=== PATIENT | female | born 1990 | race Caucasian/White ===

== ENCOUNTER 2016-04-17 16:55 | Outpatient (CLI) | payer SELFPAY ==
--- NOTE | 2016-04-17 18:00 | L&D Flow Sheet ---
LD Flowsheet Datetime Report Generated by CPN: 04/17/2016 18:00 Datetime: 04/17/2016 17:48 Vital Signs NBP Sys/Kalee/Mean (mmHg): 107 (QS system process) : 56 (QS system process) : 76 (QS system process) Pulse: 91 (QS system process) Datetime: 04/17/2016 17:45 Communication Communication Comments: Dr. Tucker notified of patient with complaints of vaginal bleeding, cervical exam reported, no vaginal bleeding upon exam. Order received to obtain reactive NST, discharge patient home. (Senia Isaac, RN) Datetime: 04/17/2016 17:42 Vaginal Exam Dilatation (cm): 0.0 (Senia Isaac, RN) Effacement (%): 0 (Senia Isaac, RN) Station: -2 (Senia Gray, RN) Exam by: Leyda Gray RN (Senia Gray, RN) Vaginal Bleeding: None (Senia Gray, RN) Cervix, Consistency: Firm (Senia Gray, RN) Cervix, Position: Posterior (Senia Gray, RN) Datetime: 04/17/2016 17:34 Uterine Activity Resting Tone (Palpate): Relaxed (Senia Gray, RN) Pain Pain Scale: 0 (Senia Gray, RN) Pain Presence: None/Denies (Senia Isaac, RN) Pain Type: N/A (Senia Isaac, RN) Pain Relief Measures: Comfort Measures (Senia Isaac, RN) Pain Assessment Comments: (Senia Gray, RN) Vaginal Bleeding: Small (Seniadanna Gray, RN) Maternal Assessment Level of Consciousness: Fully Conscious (Senia Isaac, RN) DTR's/Clonus: DTRs 2+; No Clonus (Senia Isaac, RN) Headache: Denies (Senia Isaac, RN) Breath Sounds, Left: Clear and Equal (Senia Isaac, RN) Breath Sounds, Right: Clear and Equal (Senia Isaac, RN) Nausea/Vomiting: Denies (Senia Isaac, RN) RUQ Epigastric Pain: Denies (Senia Isaac, RN) Datetime: 04/17/2016 17:33 Vital Signs NBP Sys/Kalee/Mean (mmHg): 111 (QS system process) : 65 (QS system process) : 82 (QS system process) Pulse: 81 (QS system process)
[2016-04-17 18:08] LABS: URINE BARBITURATES SCREEN NEGATIVE; URINE METHADONE SCREEN NEGATIVE; URINE PHENCYCLIDINE SCREEN NEGATIVE
--- NOTE | 2016-04-17 18:28 | Non Stress Test Report ---
Non Stress Test Datetime Report Generated by CPN: 04/17/2016 18:10 DEMOGRAPHIC EGA NST: 34.4 INDICATION Indication for Study: Ordered by Provider MONITORING Monitor Explained: Monitor Explained; Test Explained; Patient Verbalized Understanding Monitor Explained Other: see flowsheet for vital signs Time on Monitor: 04/17/2016 17:25 Time off Monitor: 04/17/2016 18:03 NST Duration: 38 NST INTERVENTIONS NST Interventions: None Physician Notified NST: Dr. Tucker BABY A: [id number] BABY A Movement : Present Contraction Frequency : none FHR Baseline : 140 Accelerations : 15X15 Decelerations : None Variability : Moderate 6-25bpm NST Review: Meets Criteria for Reactive NST NST Review and Verified By : Gunnar Galo RN NST Results: Reactive NST REPORT Report Trigger: Send Report
[2016-04-17 18:39] LABS: APPEARANCE,URINE SLIGHTLY-CLOUDY; BILIRUBIN,URINE NEGATIVE (NEGATIVE); GLUCOSE, URINE NEGATIVE (NEGATIVE); KETONES,URINE NEGATIVE (NEGATIVE); LEUKOCYTE ESTERASE,URINE NEGATIVE (NEGATIVE); NITRITE,URINE NEGATIVE (NEGATIVE); PROTEIN,URINE NEGATIVE (NEGATIVE); URINE SPECIFIC GRAVITY 1.005; UROBILINOGEN,URINE NEGATIVE mg/dL (<2.0)
== END 2016-04-17 18:14 | disposition home or self-care (01) ==
LOC: ER 16:55 → LC 18:14
PROVIDERS: ATTEND Obstetrics & Gynecology
PROC: 4A1HXCZ Monitoring of Products of Conception, Cardiac Rate, External Approach (ICD-10-PCS; principal; 2016-04-17)
DX: O46.93 Antepartum hemorrhage, unspecified, third trimester (principal); Z3A.34 34 weeks gestation of pregnancy
CPT/HCPCS: 59025; 80307; 81001

== ENCOUNTER 2016-05-20 20:27 | Outpatient (CLI) | payer OTHER ==
--- NOTE | 2016-05-20 22:00 | L&D Flow Sheet ---
LD Flowsheet Datetime Report Generated by CPN: 05/20/2016 22:00 Datetime: 05/20/2016 21:34 Vital Signs NBP Sys/Kalee/Mean (mmHg): 107 (QS system process) : 58 (QS system process) : 76 (QS system process) Pulse: 78 (QS system process) Datetime: 05/20/2016 21:05 Vital Signs NBP Sys/Kalee/Mean (mmHg): 103 (QS system process) : 57 (QS system process) : 72 (QS system process) Pulse: 79 (QS system process)
[2016-05-20 22:31] LABS: APPEARANCE,URINE CLEAR; BILIRUBIN,URINE NEGATIVE (NEGATIVE); GLUCOSE, URINE NEGATIVE (NEGATIVE); KETONES,URINE NEGATIVE (NEGATIVE); LEUKOCYTE ESTERASE,URINE NEGATIVE (NEGATIVE); NITRITE,URINE NEGATIVE (NEGATIVE); PROTEIN,URINE NEGATIVE (NEGATIVE); URINE SPECIFIC GRAVITY 1.003; UROBILINOGEN,URINE NEGATIVE mg/dL (<2.0)
[2016-05-20 22:38] LABS: URINE BARBITURATES SCREEN NEGATIVE; URINE METHADONE SCREEN NEGATIVE; URINE OPIATES LOW NEGATIVE; URINE PHENCYCLIDINE SCREEN NEGATIVE
[2016-05-20] MEDS ORDERED: DIPHENHYDRAMINE HCL 50 MG CAPSULE PO ONE (23:00)
[2016-05-20] MEDS ORDERED: DIPHENHYDRAMINE HCL 25 MG CAPSULE ONE (23:18)
[2016-05-21 00:42] LABS: APPEARANCE,URINE CLEAR; BILIRUBIN,URINE NEGATIVE (NEGATIVE); GLUCOSE, URINE NEGATIVE (NEGATIVE); KETONES,URINE NEGATIVE (NEGATIVE); LEUKOCYTE ESTERASE,URINE NEGATIVE (NEGATIVE); NITRITE,URINE NEGATIVE (NEGATIVE); PROTEIN,URINE NEGATIVE (NEGATIVE); URINE SPECIFIC GRAVITY 1.012; UROBILINOGEN,URINE NEGATIVE mg/dL (<2.0)
--- NOTE | 2016-05-21 04:46 | Antepartum Discharge Summary ---
Antepartum DC Datetime Report Generated by CPN: 05/21/2016 04:45 DIET/ACTIVITY/RESTRICTIONS Diet: Regular (05/20/2016 23:21:Essie Wright RN) Activity: Normal Activity (05/20/2016 23:21:Essie Wright, RN) TEACHING/INSTRUCTIONS/REFERRALS Instructions Given To: patient and and mother (05/20/2016 23:21:Essie Wright RN) Instructions Understood: Patient Verbalized Understanding; Support Person Verbalized Understanding (05/20/2016 23:21:Essie Wright RN) Referrals: None (05/20/2016 23:21:Essie Wright RN) Educational Materials- Other: kick counts, comfort measures, early labor signs reviewed. (05/20/2016 23:21:Essie Wright RN) DISCHARGE INFORMATION Discharged AMA: No (05/20/2016 23:21:Essie Wright RN) Discharge Date/Time: 05/20/2016 23:21 (05/20/2016 23:21:Essie Wright RN) Discharged To: Home (05/20/2016 23:21:Essie Wright RN) Discharge Provider Name: Dr. Otto (05/20/2016 23:21:Essie Wright RN) Accompanied By: and mother (05/20/2016 23:21:Essie Wright RN) Discharge Method: Ambulatory (05/20/2016 23:21:Essie Wright RN) Condition: Stable (05/20/2016 23:21:Essie Wright RN) FOLLOW UP INFORMATION Follow Up With: [facility] (05/20/2016 23:21:Essie Wright RN) Follow Up On: As Scheduled (05/20/2016 23:21:Essie Wright RN) Comments: Patient has appt in office tomorrow to discuss iol due to IUGR. Patient was provided with Benadryl prior to discharge. Comfort measures were discussed, counterpressures were taught. Patient was given a hot pack for lower back to assist with comfort. UA and urine culture sent per provider request and patient aware that results were pending. (05/20/2016 23:21:Essie Wright RN)
--- NOTE | 2016-05-21 04:46 | L&D General Admission ---
General Admit Datetime Report Generated by CPN: 05/21/2016 04:45 INFORMATION Patient Age: 25 (04/17/2016 17:08:QS system process) EDC: 05/25/2016 00:00 (04/17/2016 17:27:Senia Gray RN) : 1 (04/17/2016 17:27:Senia Gray RN) Para: 0 (04/17/2016 17:49:Senia Gray RN) Para: 0 (04/17/2016 17:27:Senia Gray RN) Baby, Number in Womb: 1 (05/20/2016 23:21:Essie Wright RN) Baby, Number in Womb: 1 (04/17/2016 17:49:Senia Gray RN) CARE Primary Per Diem Registered Nurse: [facility] Department (04/17/2016 17:27:Senia Gray RN) Adequate Care: Yes (04/17/2016 17:27:Senia Gray RN) Height (in): 64 (05/21/2016 01:00:QS system process) Height (in): 64 (04/17/2016 18:13:QS system process) ALLERGIES Medication Allergy: No (04/17/2016 17:27:Senia Gray RN) Medication Allergies: No Known Allergies (05/21/2016) (05/21/2016 00:59:QS system process) Medication Allergies: No Known Allergies (04/17/2016) (04/17/2016 18:12:QS system process) Medication Allergies: No Known Allergies (12/02/2015) (04/17/2016 17:08:QS system process) Latex Allergy: No Latex Allergies (04/17/2016 17:27:Senia Gray RN) Food Allergies: n/a (04/17/2016 17:27:Senia Gray RN) Environmental Allergies: n/a (04/17/2016 17:27:Senia Gray RN) COMMUNICATION Primary Language: Korean (04/17/2016 17:27:Senia Gray RN) Medical Tx Preferred Language: Zimbabwean (04/17/2016 17:27:Senia Gray RN) Zimbabwean Communication Ability: Speaks Zimbabwean; Reads Zimbabwean (04/17/2016 17:27:Senia Gray RN) DEMOGRAPHICS Address: [facility] [address] [place] [id number] (05/20/2016 20:27:QS system process) Address: [address] [place] [id number] (04/17/2016 17:08:QS system process) Zipcode: [phone] (04/17/2016 17:08:QS system process) Home (04/17/2016 17:08:QS system process) SSN: [id number] (04/17/2016 17:08:QS system process) Next of Kin Name: LAMBERTO FREEMAN (04/17/2016 17:08:QS system process) Next of Kin (04/17/2016 17:08:QS system process) Next of Kin Relationship: SPO (05/20/2016 20:27:QS system process) Next of Kin Relationship: OR (04/17/2016 17:08:QS system process) Date of : 1990 (04/17/2016 17:08:QS system process) Marital Status: (05/20/2016 20:27:QS system process) Marital Status: Single (04/17/2016 17:08:QS system process) Sex: Female (04/17/2016 17:08:QS system process) Race: (04/17/2016 17:08:QS system process) Ethnicity: Non- or (04/17/2016 17:08:QS system process) Rastafari: Alevism (04/17/2016 17:08:QS system process) DRUG AND ALCOHOL USE Alcohol: No (04/17/2016 17:27:Senia Gray RN) Cigarettes: Never Smoker. [id number] (04/17/2016 17:27:Senia Gray RN) Marijuana: No (04/17/2016 17:27:Senia Gray RN) Cocaine: No (04/17/2016 17:27:Senia Gray RN) Other Illicit Drugs: No (04/17/2016 17:27:Senia Gray RN) VACCINE HISTORY Influenza Vaccine: Yes (04/17/2016 17:27:Senia Gray RN) Pneumococcal Vaccine: No (04/17/2016 17:27:Senia Gray RN) Tetanus Vaccine: Yes (04/17/2016 17:27:Senia Gray RN) Tdap Vaccine: Yes (04/17/2016 17:27:Senia Gray RN) Hepatitis B Vaccine: Yes (04/17/2016 17:27:Senia Gray RN) Hoe Worker: [facility] (04/17/2016 17:27:Senia Gray RN) Feeding Preference: Breast (04/17/2016 17:27:Senia Gray RN) Benefit of Breast Feed Discussed: Yes (04/17/2016 17:27:Senia Gray RN) Circumcision: No (04/17/2016 17:27:Senia Gray RN) Classes Attended: No (04/17/2016 17:27:Senia Gray RN) Tubal Ligation: No (04/17/2016 17:27:Senia Gray RN) Tubal Authorization Signed: N/A (04/17/2016 17:27:Senia Gray RN) Consent: N/A (04/17/2016 17:27:Senia Gray RN) Pain Management Plans: Natural (04/17/2016 17:27:Senia Gray RN) Plans for Labor and Delivery: None (04/17/2016 17:27:Senia Gray RN) Support Person: Lamberto Freeman (04/17/2016 17:27:Senia Gray RN) Support Person Relationship: Significant Other (04/17/2016 17:27:Senia Gray RN) Cultural/Spritual Practice: No (04/17/2016 17:27:Senia Gray RN) Spir/Cult Dietary Needs: No (04/17/2016 17:27:Senia Gray RN) LIVING SITUATION/DISCHARGE PLAN Living Arrangements: Apartment (04/17/2016 17:27:Senia Gray RN) Adequate Access to:: Electric; Heat; Refrigeration; Plumbing/Running water; Phone; Transportation (04/17/2016 17:27:Senia Gray RN) WIC Program: Yes (04/17/2016 17:27:Senia Gray RN) Discharge Supervisor Newspaper Deliveries Person: Lamberto Freeman (04/17/2016 17:27:Senia Gray RN) Person to Help after Discharge: Lamberto Freeman (04/17/2016 17:27:Senia Gray RN) Currently Using Commun Resources: Yes (04/17/2016 17:27:Senia Gray RN) Outside Agency/Hair[employer] Adjuster: N/A (04/17/2016 17:27:Senia Gray RN) Car Seat for Discharge: Yes (04/17/2016 17:27:Senia Gray RN) Adoption Requested: No (04/17/2016 17:27:Senia Gray RN) Pt Contact w/infant Post : N/A (04/17/2016 17:27:Senia Gray RN) OB/PREVIOUS HISTORY Current Procedures: Ultrasound (04/17/2016 17:27:Senia Gray RN) History of Previous : No (04/17/2016 17:27:Senia Gray RN) History of Gestational Diabetes: No (04/17/2016 17:27:Senia Gray RN) History of PIH: No (04/17/2016 17:27:Senia Gray RN) History of Incompetent Cervix: No (04/17/2016 17:27:Senia Gray RN) History of Placenta Previa/Abrup: No (04/17/2016 17:27:Senia Gray RN) History of Macrosomia: No (04/17/2016 17:27:Senia Gray RN) History of IUGR: No (04/17/2016 17:27:Senia Gray RN) History of Hemorrhage: No (04/17/2016 17:27:Senia Gray RN) History of Loss/Stillborn: No (04/17/2016 17:27:Senia Gray RN) History of : No (04/17/2016 17:27:Senia Gray RN) History of D (Rh) Sensitization: No (04/17/2016 17:27:Senia Gray RN) History Recurrent Loss/Stillborn: No (04/17/2016 17:27:Senia Gray RN) History Depression/PP Depression: No (04/17/2016 17:27:Senia Gray RN) History of Uterine Anomaly/MARNI: No (04/17/2016 17:27:Senia Gray RN) History of Infertility: No (04/17/2016 17:27:Senia Gray RN) History of ART Treatment: No (04/17/2016 17:27:Senia Gray RN) History of MARNI: No (04/17/2016 17:27:Senia Gray RN) Comments Obstetrical History: G1: current (04/17/2016 17:27:Senia Gray RN) MEDICAL HISTORY Med Hx Diabetes: No (04/17/2016 17:27:Senia Gray RN) Med Hx Hypertension: No (04/17/2016 17:27:Senia Gray RN) Med Hx Heart Disease: No (04/17/2016 17:27:Senia Gray RN) Med Hx Autoimmune Disorder: No (04/17/2016 17:27:Senia Gray RN) Med Hx Kidney Disease/UTI: No (04/17/2016 17:27:Senia Gray RN) Med Hx Neurologic/Epilepsy: No (04/17/2016 17:27:Senia Gray RN) Med Hx Psychiatric Disorders: No (04/17/2016 17:27:Senia Gray RN) Med Hx Hepatitis/Liver Disease: No (04/17/2016 17:27:Senia Gray RN) Med Hx Varicosities/Phlebitis: No (04/17/2016 17:27:Senia Gray RN) Med Hx Thyroid Dysfunction: No (04/17/2016 17:27:Senia Gray RN) Med Hx Trauma/Violence: No (04/17/2016 17:27:Senia Gray RN) Med Hx Blood Transfusion: No (04/17/2016 17:27:Senia Gray RN) Med Hx Pulmonary (Asthma,TB): No (04/17/2016 17:27:Senia Gray RN) Med Hx Breast: No (04/17/2016 17:27:Senia Gray RN) Med Hx FISH CLEANER MACHINE TENDER Surgery: No (04/17/2016 17:27:Senia Gray RN) Med Hx Hospitalization/Surgery: No (04/17/2016 17:27:Senia Gray RN) Med Hx Anesthetic Complications: No (04/17/2016 17:27:Senia Gray RN) Med Hx Abnormal Pap Smear: No (04/17/2016 17:27:Senia Gray RN) Other Medical Diseases: No (04/17/2016 17:27:Senia Gray RN) Med Hx Significant Family Hx: No (04/17/2016 17:27:Senia Gray RN) INFECTIOUS HISTORY Inf Hx Gonorrhea: No (04/17/2016 17:27:Senia Gray RN) Inf Hx Chlamydia: No (04/17/2016 17:27:eSnia Gray RN) Inf Hx Syphilis: No (04/17/2016 17:27:Senia Gray RN) Inf Hx HIV/AIDS: No (04/17/2016 17:27:Senia Gray RN) Inf Hx Human Papilloma Virus: No (04/17/2016 17:27:Senia Gray RN) Inf Hx Pt/Partner Genital Herpes: No (04/17/2016 17:27:Senia Gray RN) Inf Hx Tuberculosis/Exposure: No (04/17/2016 17:27:Senia Gray RN) Inf Hx Hepatitis B,C: No (04/17/2016 17:27:Senia Gray RN) Inf Hx Rash or Viral Illness: No (04/17/2016 17:27:Senia Gray RN) GENETIC HISTORY Gen Hx Age >=35 at RAMAN: No (04/17/2016 17:27:Senia Gray RN) Gen Hx Thalassemia: No (04/17/2016 17:27:Senia Gray RN) Gen Hx Congenital Heart Defect: No (04/17/2016 17:27:Senia Gray RN) Gen Hx Neural Tube Defect: No (04/17/2016 17:27:Senia Gray RN) Gen Hx Down's Syndrome: No (04/17/2016 17:27:Senia Gray RN) Gen Hx Zachary-Sachs: No (04/17/2016 17:27:Senia Gray RN) Gen Hx Yumiko: No (04/17/2016 17:27:Senia Gray RN) Gen Hx Familial Dysautonomia: No (04/17/2016 17:27:Senia Gray RN) Gen Hx Sickle Cell Disease/Trait: No (04/17/2016 17:27:Senia Gray RN) Gen Hx Hemophilia/Blood Disorder: No (04/17/2016 17:27:Senia Gray RN) Gen Hx Muscular Dystrophy: No (04/17/2016 17:27:Senia Gray RN) Gen Hx Cystic Fibrosis: No (04/17/2016 17:27:Senia Gray RN) Gen Hx Huntingtons Chorea: No (04/17/2016 17:27:Senia Gray RN) Gen Hx Mental Retardation/Autism: No (04/17/2016 17:27:Senia Gray RN) Gen Hx Tested for Fragile X: No (04/17/2016 17:27:Senia Gray RN) Gen Hx Other Inher/Chromosomal: No (04/17/2016 17:27:Senia Gray RN) Gen Hx Maternal Metabolic DO: No (04/17/2016 17:27:Senia Gray RN) Gen Hx Pt Father or FOB Defect: No (04/17/2016 17:27:Senia Gray RN) Gen Hx Other Genetic History: No (04/17/2016 17:27:Senia Gray RN) Gen Hx Drugs/Meds since LMP: No (04/17/2016 17:27:Senia Gray RN)
--- NOTE | 2016-05-21 04:46 | L&D Flow Sheet ---
LD Flowsheet Datetime Report Generated by CPN: 05/21/2016 04:45 Datetime: 05/20/2016 23:21 Communication Additional Nursing Comments: Discharged home in stable condition (Essie Kossmann, RN) Datetime: 05/20/2016 23:18 Medications Analgesics/Sedatives: Benadryl (mg) @ (Annotations: benadryl 50mg po) (Essie Kossmann, RN) Datetime: 05/20/2016 23:00 Vaginal Exam Dilatation (cm): 1.5 (Essie Wright RN) Effacement (%): thick (Essie Wright RN) Station: -2 (Annotations: posterior) (Essie Wright RN) Exam by: JANE Wright (Essie Wright RN) Communication Comments: Dr. Otto aware of urine results, and sve. Plans to obtain urine culture and discharge home with benadryl 50mg po. Patient has return appt scheduled in office. (Essie Wright RN) Datetime: 05/20/2016 22:21 Uterine Activity Monitor Mode: External; Palpation (Essie Wright RN) Frequency (min): x2 (Essie Wright RN) Quality: Mild (Essie Wright RN) Duration (sec): 50-60 (Essie Wright RN) Resting Tone (Palpate): Relaxed (Essie Wright RN) Assessment A Monitor Mode: External US (Essie Wright, RN) FHR Baseline Rate : 125 (Essie Adriana, RN) Variability: Moderate 6-25 bpm (Essie Adriana, RN) Accelerations: 15X15 (Essie Adriana, RN) Decelerations: None (Essie Mikeyjacoboann, RN) Datetime: 05/20/2016 22:04 NBP Sys/Kalee/Mean (mmHg): 106 (QS system process) : 57 (QS system process) : 74 (QS system process) Pulse: 77 (QS system process) LaborFlag: Labor (QS system process) Datetime: 05/20/2016 22:01 Uterine Activity Monitor Mode: External; Palpation (Essie Kossmann, RN) Frequency (min): irregular (Essie Kossmann, RN) Quality: Mild (Essie Kossmann, RN) Duration (sec): 30-70 (Essie Kossmann, RN) Resting Tone (Palpate): Relaxed (Essie Kossmann, RN) Assessment A Monitor Mode: External US (Essie Kossmann, RN) FHR Baseline Rate : 125 (Essie Kossmann, RN) Variability: Moderate 6-25 bpm (Essie Kossmann, RN) Accelerations: 15X15 (Essie Kossmann, RN) Decelerations: None (Essie Kossmann, RN) Datetime: 05/20/2016 21:34 NBP Sys/Kalee/Mean (mmHg): 107 (QS system process) : 58 (QS system process) : 76 (QS system process) Pulse: 78 (QS system process) LaborFlag: Labor (QS system process) Datetime: 05/20/2016 21:30 Uterine Activity Monitor Mode: External; Palpation (Essie Wright RN) Frequency (min): x2 with uterine irritability (Essie Wright RN) Quality: Mild (Essie Wright RN) Duration (sec): 30-40 (Essie Wright RN) Resting Tone (Palpate): Relaxed (Essie Kossmann, RN) Assessment A Monitor Mode: External US (Essie Adriana, RN) FHR Baseline Rate : 125 (Essiefarrukh Wrigth, RN) Variability: Moderate 6-25 bpm (Essie Jensenludivina, RN) Accelerations: 15X15 (Essie Jensenludivina, RN) Decelerations: None (Essie Wright, RN) Datetime: 05/20/2016 21:05 NBP Sys/Kalee/Mean (mmHg): 103 (QS system process) : 57 (QS system process) : 72 (QS system process) Pulse: 79 (QS system process) Respirations: 16 (Essie Wright, RN) Pain Pain Scale: 3 (Essie Wright RN) Pain Presence: Intermittent (Essie Wright RN) Pain Type: Contraction (Essie Wright RN) Pain Location: Abdomen; Back (Essie Wright RN) Pain Relief Measures: Comfort Measures (Essie Wright RN) Pain Coping: Talking Through Contractions; Breathing Through Contractions (Essie Wright RN) LaborFlag: Labor (QS system process) Datetime: 05/20/2016 20:45 Vaginal Exam Dilatation (cm): 2.0 (Annotations: tight) (Essie Wright RN) Effacement (%): thick (Essie Wright RN) Station: -2 (Annotations: posterior) (Essie Wright RN) Exam by: Dr. Otto (Essie Kossmann, RN) Datetime: 05/20/2016 19:00 Vital Signs Stage of : Labor (Essiefarrukh Wright, RN)
--- NOTE | 2016-05-21 04:46 | L&D Admission Assessment ---
LD ADM ASMT Datetime Report Generated by CPN: 05/21/2016 04:45 WEIGHT Weight (lb): 198 (05/21/2016 01:00:QS system process) Weight (kg): 90.0 (05/21/2016 01:00:QS system process) BMI: 34.0 (05/21/2016 01:00:QS system process) PAIN Pain Scale: 3 (05/20/2016 21:05:Essie Wright RN) Pain Presence: Intermittent (05/20/2016 21:05:Essie Wright RN) Pain Type: Contraction (05/20/2016 21:05:Essie Wright RN) Pain Location: Abdomen; Back (05/20/2016 21:05:Essie Wright RN) CONTRACTIONS Frequency (min): x2 (05/20/2016 22:21:Essie Wright RN) Frequency (min): irregular (05/20/2016 22:01:Essie Wright RN) Frequency (min): x2 with uterine irritability (05/20/2016 21:30:Essie Wright RN) Duration (sec): 50-60 (05/20/2016 22:21:Essie Wright RN) Duration (sec): 30-70 (05/20/2016 22:01:Essie Wright RN) Duration (sec): 30-40 (05/20/2016 21:30:Essie Wright RN) Quality: Mild (05/20/2016 22:21:Essie Wright RN) Quality: Mild (05/20/2016 22:01:Essie Wright RN) Quality: Mild (05/20/2016 21:30:Essie Wright RN) Resting Tone Apollo: Relaxed (05/20/2016 22:21:Essie Wright RN) Resting Tone Apollo: Relaxed (05/20/2016 22:01:Essie Wright RN) Resting Tone Apollo: Relaxed (05/20/2016 21:30:Essie Wright RN) VAGINAL EXAM Dilatation (cm): 1.5 (05/20/2016 23:00:Essie Wright RN) Dilatation (cm): 2.0 (Annotations: tight) (05/20/2016 20:45:Essie Wright RN) Effacement (%): thick (05/20/2016 23:00:Essie Wright RN) Effacement (%): thick (05/20/2016 20:45:Essie Wright RN) Station: -2 (Annotations: posterior) (05/20/2016 23:00:Essie Wright RN) Station: -2 (Annotations: posterior) (05/20/2016 20:45:Essie Wright RN) BABY A FHR Baseline Rate (bpm) Baby A: 125 (05/20/2016 22:21:Essie Wright RN) FHR Baseline Rate (bpm) Baby A: 125 (05/20/2016 22:01:Essie Wright RN) FHR Baseline Rate (bpm) Baby A: 125 (05/20/2016 21:30:Essie Wright RN) Variability Baby A: Moderate 6-25 bpm (05/20/2016 22:21:Essie Wright RN) Variability Baby A: Moderate 6-25 bpm (05/20/2016 22:01:Essie Wright RN) Variability Baby A: Moderate 6-25 bpm (05/20/2016 21:30:Essie Wright RN) Accelerations Baby A: 15X15 (05/20/2016 22:21:Essie Wright RN) Accelerations Baby A: 15X15 (05/20/2016 22:01:Essie Wright RN) Accelerations Baby A: 15X15 (05/20/2016 21:30:Essie Wright RN) Decelerations Baby A: None (05/20/2016 22:21:Essie Wright RN) Decelerations Baby A: None (05/20/2016 22:01:Essie Wright RN) Decelerations Baby A: None (05/20/2016 21:30:Essie Wright RN)
--- NOTE | 2016-05-21 04:46 | L&D Discharge Summary ---
OB Discharge Summary Datetime Report Generated by CPN: 05/21/2016 04:45 DISCHARGE DIAGNOSIS Diagnosis/Symptoms: False Labor Diagnoses/Symptoms Other: IUP at 34.4, no vaginal bleeding upon exam Gestation: 39.2 Number of Babies in Womb: 1 Parity: 0 DIET/ACTIVITY/RESTRICTIONS Diet: Regular Activity: Normal Activity TEACHING/INSTRUCTIONS/REFERRALS Instructions Given To: patient and and mother Instructions Understood: Patient Verbalized Understanding; Support Person Verbalized Understanding Referrals: None Educational Materials- Other: kick counts, comfort measures, early labor signs reviewed. DISCHARGE INFORMATION Discharged AMA: No Discharge Date/Time: 05/20/2016 23:21 Discharged To: Home Discharge Provider Name: Dr. Otto Accompanied By: and mother Discharge Method: Ambulatory Condition: Stable FOLLOW UP INFORMATION Follow Up With: [facility] Follow Up On: As Scheduled Follow Up Phone Number: Health Department - Comments: Patient has appt in office tomorrow to discuss iol due to IUGR. Patient was provided with Benadryl prior to discharge. Comfort measures were discussed, counterpressures were taught. Patient was given a hot pack for lower back to assist with comfort. UA and urine culture sent per provider request and patient aware that results were pending. GENERAL INSTR-CALL PROVIDER IF: Contractions: Contractions or cramps become more frequent than 8 in one hour or 4 in 20 minutes; Regular painful contractions every 5 minutes or less for one hour. Time your contractions from the beginning of one to the beginning of the next Pressure: Pressure in your vagina or lower abdomen that may feel like the baby is pushing down Period Like Cramps: Period-like cramps or low dull backache that may come and go Cramps/Diarrhea: Abdominal cramps that may be accompanied by diarrhea Gush of Fluid/Blood: Gush of fluid or blood from your vagina (it is normal to have spotting after vaginal exam or intercourse) Vaginal Discharge: Change in the type or amount of vaginal discharge Decreased Movement: Your baby is not moving as much as usual- 4 movements in 1 hour after drinking and resting on side Temperature: Temperature greater than 100.0(F) orally
--- NOTE | 2016-05-21 04:46 | L&D Current Admission ---
Current Admit Datetime Report Generated by CPN: 05/21/2016 04:45 ADMISSION INFORMATION Chief Complaint: Vaginal Bleeding (04/17/2016 17:34:Senia Gray RN)
== END 2016-05-20 23:18 | disposition home or self-care (01) ==
LOC: LC 20:27
PROVIDERS: ATTEND Student in an Organized Health Care Education/Training Program
PROC: 4A1HXCZ Monitoring of Products of Conception, Cardiac Rate, External Approach (ICD-10-PCS; principal; 2016-05-20)
DX: O47.1 False labor at or after 37 completed weeks of gestation (principal); O36.5930 Maternal care for other known or suspected poor fetal growth, third trimester, not applicable or unspecified; Z3A.39 39 weeks gestation of pregnancy
CPT/HCPCS: 59025; 80307; 81001; 87086

== ENCOUNTER 2016-05-21 10:08 | Outpatient (CLI) | payer OTHER ==
--- NOTE | 2016-05-21 10:27 | Non Stress Test Report ---
Non Stress Test Datetime Report Generated by CPN: 05/21/2016 10:27 DEMOGRAPHIC Test Number: 2 EGA NST: 39.2 INDICATION Indication for Study: Ordered by Provider VITAL SIGNS Pulse - NST: 77 RESP - NST: 16 NBPSYS NST: 106 NBPDIA NST: 57 URINE RESULTS Urine Protein, NST: Negative Urine Ketones - NST: Negative Urine Glucose - NST: Negative Urine Blood - NST: Negative MONITORING Monitor Explained: Monitor Explained; Test Explained; Patient Verbalized Understanding Time on Monitor: 05/20/2016 21:02 Time off Monitor: 05/20/2016 22:21 NST Duration: 79 NST INTERVENTIONS NST Interventions: PO Hydration Physician Notified NST: Dr. Otto BABY A: [id number] BABY A Movement : Present Contraction Frequency : irregular FHR Baseline : 125 Accelerations : 15X15 Decelerations : None Variability : Moderate 6-25bpm NST Review: Meets Criteria for Reactive NST NST Review and Verified By : KDana Rebollarco, RN NST Results: Reactive NST REPORT Report Trigger: Send Report
[2016-05-21 11:18] LABS: APPEARANCE,URINE CLOUDY; BILIRUBIN,URINE NEGATIVE (NEGATIVE); GLUCOSE, URINE NEGATIVE (NEGATIVE); KETONES,URINE NEGATIVE (NEGATIVE); LEUKOCYTE ESTERASE,URINE NEGATIVE (NEGATIVE); NITRITE,URINE NEGATIVE (NEGATIVE); PROTEIN,URINE NEGATIVE (NEGATIVE); URINE SPECIFIC GRAVITY 1.011; UROBILINOGEN,URINE NEGATIVE mg/dL (<2.0)
--- NOTE | 2016-05-21 11:28 | Non Stress Test Report ---
Non Stress Test Datetime Report Generated by CPN: 05/21/2016 11:28 DEMOGRAPHIC EGA NST: 39.3 INDICATION Indication for Study: Ordered by Provider; Other MONITORING Monitor Explained: Monitor Explained; Test Explained; Patient Verbalized Understanding Time on Monitor: 05/21/2016 10:30 Time off Monitor: 05/21/2016 11:20 NST Duration: 50 NST INTERVENTIONS NST Interventions: PO Hydration Physician Notified NST: C Velasco CNM BABY A Movement : Present Contraction Frequency : none FHR Baseline : 135 Accelerations : 15X15 Decelerations : None Variability : Moderate 6-25bpm NST Review: Meets Criteria for Reactive NST NST Review and Verified By : Willie Monroe RN NST Results: Reactive NST REPORT Report Trigger: Send Report
[2016-05-21 11:34] LABS: URINE BARBITURATES SCREEN NEGATIVE; URINE METHADONE SCREEN NEGATIVE; URINE OPIATES LOW NEGATIVE; URINE PHENCYCLIDINE SCREEN NEGATIVE
== END 2016-05-21 11:33 | disposition home or self-care (01) ==
LOC: LC 10:08
PROVIDERS: ATTEND Obstetrics & Gynecology
PROC: 4A1HXCZ Monitoring of Products of Conception, Cardiac Rate, External Approach (ICD-10-PCS; principal; 2016-05-21)
DX: O47.1 False labor at or after 37 completed weeks of gestation (principal); Z3A.39 39 weeks gestation of pregnancy
CPT/HCPCS: 59025; 80307; 81005

== ENCOUNTER 2016-05-23 16:14 | Outpatient (CLI) | payer OTHER ==
[2016-05-23] MEDS ORDERED: HYDROXYZINE PAMOATE 50 MG CAPSULE PO ONE (17:29)
[2016-05-23] MEDS ORDERED: HYDROXYZINE PAMOATE 50 MG CAPSULE ONE (17:32)
--- NOTE | 2016-05-23 17:53 | Non Stress Test Report ---
Non Stress Test Datetime Report Generated by CPN: 05/23/2016 17:52 DEMOGRAPHIC EGA NST: 39.5 INDICATION Indication for Study: Other Indication for Study (NST) Other: labor check MONITORING Monitor Explained: Monitor Explained; Test Explained; Patient Verbalized Understanding Time on Monitor: 05/23/2016 16:31 Time off Monitor: 05/23/2016 17:31 NST Duration: 60 NST INTERVENTIONS NST Interventions: PO Hydration Physician Notified NST: GRACE BABY A: [id number] BABY A Movement : Present Contraction Frequency : irregular FHR Baseline : 140 Accelerations : 15X15 Decelerations : None Variability : Moderate 6-25bpm NST Review: Meets Criteria for Reactive NST NST Review and Verified By : S Mabel RN NST Results: Reactive NST REPORT Report Trigger: Send Report
== END 2016-05-23 17:59 | disposition home or self-care (01) ==
LOC: LC 16:14
PROVIDERS: ATTEND Obstetrics & Gynecology
PROC: 4A1HXCZ Monitoring of Products of Conception, Cardiac Rate, External Approach (ICD-10-PCS; principal; 2016-05-23)
DX: O47.1 False labor at or after 37 completed weeks of gestation (principal); Z3A.39 39 weeks gestation of pregnancy
CPT/HCPCS: 59025

== ENCOUNTER 2016-05-27 00:18 | Outpatient (CLI) | payer OTHER ==
[2016-05-27 00:52] LABS: APPEARANCE,URINE SLIGHTLY-CLOUDY; BILIRUBIN,URINE NEGATIVE (NEGATIVE); GLUCOSE, URINE NEGATIVE (NEGATIVE); KETONES,URINE NEGATIVE (NEGATIVE); LEUKOCYTE ESTERASE,URINE TRACE (NEGATIVE); NITRITE,URINE NEGATIVE (NEGATIVE); PROTEIN,URINE NEGATIVE (NEGATIVE); URINE SPECIFIC GRAVITY 1.004; UROBILINOGEN,URINE NEGATIVE mg/dL (<2.0)
[2016-05-27 01:07] LABS: URINE BARBITURATES SCREEN NEGATIVE; URINE METHADONE SCREEN NEGATIVE; URINE OPIATES LOW NEGATIVE; URINE PHENCYCLIDINE SCREEN NEGATIVE
[2016-05-27] MEDS ORDERED: HYDROXYZINE PAMOATE 50 MG CAPSULE PO ONE (02:08)
[2016-05-27] MEDS ORDERED: HYDROXYZINE PAMOATE 50 MG CAPSULE ONE (02:13)
--- NOTE | 2016-05-27 04:46 | L&D Flow Sheet ---
LD Flowsheet Datetime Report Generated by CPN: 05/27/2016 04:45 Datetime: 05/27/2016 02:15 Medication Comments: Pt declines vistaril at this time. (Nori Ware RN) Teaching Comments: Patient, patient's spouse and patient's mother all verbalized understanding of discharge materials and were able to teach back signs and symptoms to report to provider/return to hospital for to include suspected SROM, decreased movement, bleeding like a period, contractions that increase in frequency/intensity/duration. Pt will follow up with A this week as scheduled. No questions at this time with a pain level of a 2 out of 5 currently. (Nori Ware RN) Datetime: 05/27/2016 02:13 Monitor Mode: External; Palpation (Nori Ring, RN) Frequency (min): 0 (Nori Ring, RN) Resting Tone (Palpate): Relaxed (Nori Ring, RN) Monitor Mode: External US (Nori Ring, RN) FHR Baseline Rate : 125 (Nori Ring, RN) Variability: Moderate 6-25 bpm (Nori Ring, RN) Accelerations: 15X15 (Nori Ring, RN) Decelerations: None (Nori Ring, RN) Datetime: 05/27/2016 02:04 Communication: Provider Orders Received; Call/Page Placed to Provider (Nori Ware RN) Communication Comments: Call placed to Dr. Gray. Report to include relevant patient history, pt complaint of contractions, SVE and SVE recheck, toco data, urinalysis results, vital signs, FHR, assessment findings. Orders received to send patient home and follow up as scheduled, pt may have 50 mg vistaril PO now x 1 for comfort if desired. (Nori Ring, RN) Datetime: 05/27/2016 02:02 NBP Sys/Kalee/Mean (mmHg): 102 (QS system process) : 59 (QS system process) : 77 (QS system process) Pulse: 70 (QS system process) LaborFlag: Labor (QS system process) Datetime: 05/27/2016 01:59 Monitor Mode: External; Palpation (Nori Ring, RN) Frequency (min): x1 (Nori Ring, RN) Quality: Mild (Nori Ring, RN) Duration (sec): 40 (Nori Ring, RN) Resting Tone (Palpate): Relaxed (Nori Ring, RN) Monitor Mode: External US (Nori Ring, RN) FHR Baseline Rate : 125 (Nori Ring, RN) Variability: Moderate 6-25 bpm (Nori Ring, RN) Accelerations: 15X15 (Nori Ring, RN) Decelerations: None (Nori Ring, RN) Exam by: Yoana Calderon RN (Nori Ring, RN) Vaginal Bleeding: None (Nori Ring, RN) Cervix, Consistency: Moderate (Nori Ring, RN) Cervix, Position: Posterior (Nori Ring, RN) Vaginal Exam Comments: Ft/thick/high (Nori Ring, RN) Datetime: 05/27/2016 01:40 NBP Sys/Kalee/Mean (mmHg): 109 (QS system process) : 59 (QS system process) : 79 (QS system process) Pulse: 66 (QS system process) LaborFlag: Labor (QS system process) Datetime: 05/27/2016 01:30 Monitor Mode: External; Palpation (Nori Ring, RN) Frequency (min): 0 (Nori Ring, RN) Resting Tone (Palpate): Relaxed (Nori Ring, RN) Monitor Mode: External US (Nori Ring, RN) FHR Baseline Rate : 115 (Nori Ring, RN) Variability: Minimal - Undetectable to <=5 bpm (Nori Ring, RN) Accelerations: None (Nori Ring, RN) Decelerations: None (Nori Ring, RN) Datetime: 05/27/2016 01:10 NBP Sys/Kalee/Mean (mmHg): 119 (QS system process) : 61 (QS system process) : 85 (QS system process) Pulse: 73 (QS system process) LaborFlag: Labor (QS system process) Datetime: 05/27/2016 01:00 Monitor Mode: External; Palpation (Nori Ring, RN) Frequency (min): x1 (Nori Ring, RN) Quality: Mild (Nori Ring, RN) Duration (sec): 80 (Nori Ring, RN) Resting Tone (Palpate): Relaxed (Nori Ring, RN) Monitor Mode: External US (Nori Ring, RN) FHR Baseline Rate : 125 (Nori Ring, RN) Variability: Moderate 6-25 bpm (Nori Ring, RN) Accelerations: 15X15 (Nori Ring, RN) Decelerations: None (Nori Ring, RN) Datetime: 05/27/2016 00:58 Exam by: Yoana Calderon RN (Nori Ring, RN) Vaginal Bleeding: None (Nori Ring, RN) Cervix, Consistency: Moderate (Nori Ring, RN) Cervix, Position: Posterior (Nori Ring, RN) Vaginal Exam Comments: FT/TH/high (oNri Ring, RN) Datetime: 05/27/2016 00:42 Frequency (min): Every 6-7.5 minutes (Nori Ware RN) Pain Scale: 3 (Annotations: When not having a contraction pain is a 2 out of 5) (Nori Ware RN) Pain Presence: Intermittent (Nori Ware, RN) Pain Type: Pressure (Nori Ware RN) Pain Location: Abdomen; Perineum (Nori Ware, RN) Pain Goal: 1 (Nori Ware, RN) Pain Relief Measures: Comfort Measures (Nori Ware, RN) Pain Coping: Talking Through Contractions; Breathing Through Contractions (Nori Ware, RN) Membrane Status: Intact (Nori Ring, RN) Vaginal Bleeding: None (Nori Ware, RN) Level of Consciousness: Fully Conscious (Nori Ware, RN) DTR's/Clonus: DTRs 1+; No Clonus (Nori Ware, RN) Headache: Denies (Nori Ware, RN) Breath Sounds, Left: Clear and Equal (Nori Ware, RN) Breath Sounds, Right: Clear and Equal (Nori Ware, RN) Nausea/Vomiting: Present (Nori Ware, RN) RUQ Epigastric Pain: Denies (Nori Ware, RN) Instructional Method: Verbal; Patient Instructed; Family/Support Person Instructed; Verbalized Understanding (Nori Ware RN) Plan of Care: Plan of Care Discussed (Nori Ware RN) Unit Routine: [place] to Room; Call Amaro; Bed; Handwashing; Monitoring; Safety/Fall Risk Prevention; Bathroom Privileges (Nori Ware RN) Related: Common Discomforts of (Nori Ring, RN) LaborFlag: Labor (QS system process) Datetime: 05/27/2016 00:40 NBP Sys/Kalee/Mean (mmHg): 110 (QS system process) : 73 (QS system process) : 86 (QS system process) Pulse: 77 (QS system process) Respirations: 18 (Nori Ring, RN) Temperature (F): 97.5 (Nori Ring, RN) Temperature (C): 36.4 (QS system process) Temperature Route: Oral (Nori Ring, RN) LaborFlag: Labor (QS system process)
--- NOTE | 2016-05-27 04:46 | L&D General Admission ---
General Admit Datetime Report Generated by CPN: 05/27/2016 04:45 CARE Height (in): 64 (05/27/2016 00:33:QS system process) Height (in): 64 (05/23/2016 16:29:QS system process) Height (in): 64 (05/21/2016 11:30:QS system process) ALLERGIES Medication Allergies: No Known Allergies (05/27/2016) (05/27/2016 00:32:QS system process) Medication Allergies: No Known Allergies (05/23/2016) (05/23/2016 16:28:QS system process)
--- NOTE | 2016-05-27 04:46 | L&D Current Admission ---
Current Admit Datetime Report Generated by CPN: 05/27/2016 04:45 ADMISSION INFORMATION Chief Complaint: Contractions (05/27/2016 00:42:Nori Ware RN) Chief Complaint: Contractions; Nausea (05/23/2016 16:30:Kosta Monroe RN) Chief Complaint: Contractions (Annotations: Lost Mucus Plug; Contractions irregular throughout the night.) (05/21/2016 10:30:Kosta Monroe RN)
--- NOTE | 2016-05-27 04:46 | L&D Admission Assessment ---
LD ADM ASMT Datetime Report Generated by CPN: 05/27/2016 04:45 Assessment Type: Triage (05/27/2016 00:42:Nori Ring, RN) Weight (lb): 205 (05/27/2016 00:33:QS system process) Weight (kg): 93.2 (05/27/2016 00:33:QS system process) Total Wt Gain (lb): 85 (05/27/2016 00:33:QS system process) Wt Gain (kg): 38.5 (05/27/2016 00:33:QS system process) BMI: 35.2 (05/27/2016 00:33:QS system process) Pain Scale: 3 (Annotations: When not having a contraction pain is a 2 out of 5) (05/27/2016 00:42:Nori Ring, RN) Pain Presence: Intermittent (05/27/2016 00:42:Nori Ring, RN) Pain Type: Pressure (05/27/2016 00:42:Nori Ring, RN) Pain Location: Abdomen; Perineum (05/27/2016 00:42:Nori Ring, RN) Pain Goal: 1 (05/27/2016 00:42:Nori Ring, RN) Pain Related to Contraction: Yes (05/27/2016 00:42:Nori Ring, RN) Frequency (min): 0 (05/27/2016 02:13:Nori Ring, RN) Frequency (min): x1 (05/27/2016 01:59:Nori Ring, RN) Frequency (min): 0 (05/27/2016 01:30:Nori Ring, RN) Frequency (min): x1 (05/27/2016 01:00:Nori Ring, RN) Frequency (min): Every 6-7.5 minutes (05/27/2016 00:42:Nori Ring, RN) Duration (sec): 40 (05/27/2016 01:59:Nori Ring, RN) Duration (sec): 80 (05/27/2016 01:00:Nori Ring, RN) Quality: Mild (05/27/2016 01:59:Nori Ring, RN) Quality: Mild (05/27/2016 01:00:Nori Ring, RN) Resting Tone [place]: Relaxed (05/27/2016 02:13:Nori Ring, RN) Resting Tone [place]: Relaxed (05/27/2016 01:59:Nori Ring, RN) Resting Tone [place]: Relaxed (05/27/2016 01:30:Nori Ring, RN) Resting Tone [place]: Relaxed (05/27/2016 01:00:Nori Ring, RN) Membranes Status: Intact (05/27/2016 00:42:Nori Ring, RN) Level of Consciousness: Fully Conscious (05/27/2016 00:42:Nori Ring, RN) DTR's/Clonus: DTRs 1+; No Clonus (05/27/2016 00:42:Nori Ring, RN) Headache: Denies (05/27/2016 00:42:Nori Ring, RN) Dizziness: No (05/27/2016 00:42:Nori Ring, RN) Blurred Vision: No (05/27/2016 00:42:Nori Ring, RN) Extremity Numbness/Tingling : None (05/27/2016 00:42:Nori Ring, RN) Extremity Movement: Full Range of Motion (05/27/2016 00:42:Nori Ring, RN) Heart Rhythm: Regular (05/27/2016 00:42:Nori Ring, RN) Nailbeds: [place] (05/27/2016 00:42:Nori Ring, RN) Capillary Refill: Less than 3 Seconds (05/27/2016 00:42:Nori Ring, RN) Lower Extremities Edema: Bilateral Lower Extremities (05/27/2016 00:42:Nori Ring, RN) Lower Extremities Edema Degree: 1+ (05/27/2016 00:42:Nori Ring, RN) Upper Extremities Edema: None (05/27/2016 00:42:Nori Ware RN) Facial Edema: None (05/27/2016 00:42:Nori Ware RN) Brady's Sign Left Leg: Negative (05/27/2016 00:42:Nori Ware RN) Brady's Sign Right Leg: Negative (05/27/2016 00:42:Nori Ware RN) DVT Risk Age: Age less than 41 years (05/27/2016 00:42:Nori Ware RN) DVT Risk BMI: BMI 31 to 40 (05/27/2016 00:42:Nori Ware RN) DVT Risk Surgery: History of Prior Major Surgery (Annotations: History of tonsillectomy at 4 years old) (05/27/2016 00:42:Nori Ware RN) DVT Risk Other: Women Only- or (<1 month) (05/27/2016 00:42:Nori Ware RN) DVT Risk Total: 3 (05/27/2016 00:42:QS system process) DVT Risk Text: High Risk (20-40%)- Consider stockings, compresssion device, pharmacological therapy per hospital policy (05/27/2016 00:42:QS system process) Respiratory Effort: Unlabored; Regular Rhythm; Equal Expansion (05/27/2016 00:42:Nori Ware RN) Breath Sounds, Left: Clear and Equal (05/27/2016 00:42:Nori Ware RN) Breath Sounds, Right: Clear and Equal (05/27/2016 00:42:Nori Ware RN) Cough Productivity: None (05/27/2016 00:42:Nori Ware RN) Nausea/Vomiting: Present (05/27/2016 00:42:Nori Ware RN) Bowel Sounds: Normoactive; All Quadrants (05/27/2016 00:42:Nori Ware RN) RUQ Epigastric Pain: Denies (05/27/2016 00:42:Nori Ware RN) Bowel Patterns: Loose Stool (05/27/2016 00:42:Nori Ware RN) Hemorrhoids: None (05/27/2016 00:42:Nori Ware RN) Diet Type: Regular diet (05/27/2016 00:42:Nori Ware RN) Last Meal: 05/26/2016 20:30 (05/27/2016 00:42:Nori Ware RN) Bladder: Nondistended (05/27/2016 00:42:Nori Ware RN) Frequency of Urination: No (05/27/2016 00:42:Nori Ware RN) Urination Burning: No (05/27/2016 00:42:Nori Ware RN) CVA Tenderness: No (05/27/2016 00:42:Nori Ware RN) Vaginal Bleeding: None (Annotations: No blood visualized; pt states having scant bleeding earlier today and yesterday) (05/27/2016 00:42:Nori Ware RN) Vaginal Discharge Amount: Small (Annotations: Mucous plug per pt) (05/27/2016 00:42:Nori Ware RN) Vaginal Discharge Color: White (05/27/2016 00:42:Nori Ware RN) Vaginal Discharge Odor: Non-Odorous (05/27/2016 00:42:Nori Ware RN) Vaginal Discharge Character: Thin (Annotations: mucous) (05/27/2016 00:42:Nori Ware RN) Skin Color: Normal for Race (05/27/2016 00:42:Nori Ware RN) Skin Temperature: Cool (05/27/2016 00:42:Nori Ware RN) Skin Moisture: Dry (05/27/2016 00:42:Nori Ware RN) Body Piercings/Tattoos: ears (05/27/2016 00:42:Nori Ware RN) Joseph Scale Sensory Perception: No Impairment- Responds to verbal commands. Has no sensory deficit which would limit ability to feel or voice pain or discomfort (05/27/2016 00:42:Nori Ware RN) Joseph Scale Moisture: Rarely Moist- Skin is usually dry. Linen only requires changing at routine intervals (05/27/2016 00:42:Nori Ware RN) Joseph Scale Activity: Walks Frequently- Walks outside the room at least twice a day and inside room at least every 2 hours during the day. (05/27/2016 00:42:Nori Ware RN) Joseph Scale Mobility: No Limitations- Makes major and frequent changes in position without assistance (05/27/2016 00:42:Nori Ware RN) Joseph Scale Nutrition: Excellent- Eats most of every meal. Never refuses a meal. Usually eats a total of 4 or more servings of meat and dairy products. Occasionally eats between meals. Does not require supplementation (05/27/2016 00:42:Nori Ware RN) Joseph Scale Friction and Shear: No Apparent Problem- Moves in bed and in chair independently and has sufficient muscle strength to lift up completely during move. Maintains good position in bed or chair at all times (05/27/2016 00:42:Nori Ware RN) Joseph Scale Total: 23 (05/27/2016 00:42:QS system process) Joseph Scale Risk: No Risk of Pressure Ulcer Noted at this Time (05/27/2016 00:42:QS system process) Family Support: Significant Other supportive, at bedside frequently; Family supportive (05/27/2016 00:42:Nori Ware RN) Emotional State: Calm/Relaxed (05/27/2016 00:42:Nori Ware RN) Call Amaro Within Reach: Yes (05/27/2016 00:42:Nori Ware RN) Side Rails Up: Yes (05/27/2016 00:42:Nori Ware RN) Bed Wheels Locked: Yes (05/27/2016 00:42:Nori Ware RN) Arm Bands Present: Yes (05/27/2016 00:42:Nori Ware RN) Isolation: [place] (05/27/2016 00:42:Nori Ware RN) Fall Risk History of Falling: (0) No (05/27/2016 00:42:Nori Ware RN) Fall Risk Secondary Diagnosis: (0) No (05/27/2016 00:42:Nori Ware RN) Fall Risk Ambulatory Aid: (0) None/Bedrest/Wheelchair/Nurse Assist (05/27/2016 00:42:Nori Ware RN) Fall Risk IV Therapy: (0) No (05/27/2016 00:42:Nori Ware RN) Fall Risk Gait: (0) Normal/Bedrest/Immobile (05/27/2016 00:42:Nori Ware RN) Fall Risk Mental Status: (0) Oriented to Own Ability (05/27/2016 00:42:Nori Ware RN) Fall Risk Score: 0 (05/27/2016 00:42:QS system process) Fall Risk Score Definition: No Risk: No action required (05/27/2016 00:42:QS system process) Recent Exp Communicable Disease: No (05/27/2016 00:42:Nori Ware RN) Cough or Fever: No (05/27/2016 00:42:Nori Ware RN) Foreign Travel Past 10 Days: No (05/27/2016 00:42:Nori Ware RN) Open Wounds or Sores: No (05/27/2016 00:42:Nori Ware RN) Prior Antibiotic Resistance Tx: No (05/27/2016 00:42:Nori Ware RN) Cultures Obtained: Not Applicable (05/27/2016 00:42:Nori Ware RN) Isolation Initiated: No (05/27/2016 00:42:Nori Ware RN) Pt/Family Education: Handwashing Hygiene (05/27/2016 00:42:Nori Ware RN) FHR Baseline Rate (bpm) Baby A: 125 (05/27/2016 02:13:Nori Ware, RN) FHR Baseline Rate (bpm) Baby A: 125 (05/27/2016 01:59:Nori Ring, RN) FHR Baseline Rate (bpm) Baby A: 115 (05/27/2016 01:30:Nori Ring, RN) FHR Baseline Rate (bpm) Baby A: 125 (05/27/2016 01:00:Nori Ring, RN) Variability Baby A: Moderate 6-25 bpm (05/27/2016 02:13:Nori Ring, RN) Variability Baby A: Moderate 6-25 bpm (05/27/2016 01:59:Nori Ring, RN) Variability Baby A: Minimal - Undetectable to <=5 bpm (05/27/2016 01:30:Nori Ring, RN) Variability Baby A: Moderate 6-25 bpm (05/27/2016 01:00:Nori Ring, RN) Accelerations Baby A: 15X15 (05/27/2016 02:13:Nori Ring, RN) Accelerations Baby A: 15X15 (05/27/2016 01:59:Nori Ring, RN) Accelerations Baby A: None (05/27/2016 01:30:Nori Ring, RN) Accelerations Baby A: 15X15 (05/27/2016 01:00:Nori Ware RN) Decelerations Baby A: None (05/27/2016 02:13:Nori Ware RN) Decelerations Baby A: None (05/27/2016 01:59:Nori Ware RN) Decelerations Baby A: None (05/27/2016 01:30:Nori Ware RN) Decelerations Baby A: None (05/27/2016 01:00:Nori Ware RN)
--- NOTE | 2016-05-27 04:46 | Antepartum Discharge Summary ---
Antepartum DC Datetime Report Generated by CPN: 05/27/2016 04:45 Diet: Regular (05/27/2016 02:06:Nori Ware RN) Activity: Normal Activity (05/27/2016 02:06:Nori Ware RN) Instructions Given To: Patient, patient's spouse, patient's mother (05/27/2016 02:06:Nori Ware RN) Instructions Understood: Patient Verbalized Understanding; Support Person Verbalized Understanding (05/27/2016 02:06:Nori Ware RN) Referrals: None (05/27/2016 02:06:Nori Ware RN) Educational Materials- Other: - [employer] [facility] - The Labor Process (05/27/2016 02:06:Nori Ware RN) Discharge Date/Time: 05/27/2016 02:23 (05/27/2016 02:06:Nori Ware RN) Discharged To: Home (05/27/2016 02:06:Nori Ware RN) Discharge Provider Name: Dr. Gray (05/27/2016 02:06:Nroi Ware RN) Accompanied By: Spouse, mom (05/27/2016 02:06:Nori Ware RN) Discharge Method: Ambulatory (05/27/2016 02:06:Nori Ware RN) Condition: Stable (05/27/2016 02:06:Nori Ware RN) Follow Up With: [facility] (05/27/2016 02:06:Nori Ware RN) Follow Up On: As Scheduled (05/27/2016 02:06:Nori Ware RN) Follow Up Phone Number: [facility] - (05/27/2016 02:06:Nori Ware RN) Comments: Signs and symptoms to report to provider to include vaginal bleeding, suspected SROM, decreased movment, contractions that increase in frequency/duration/intensity. Follow up in the office as scheduled. (05/27/2016 02:06:Nori Ware RN)
--- NOTE | 2016-05-27 04:46 | L&D Discharge Summary ---
OB Discharge Summary Datetime Report Generated by CPN: 05/27/2016 04:45 DISCHARGE DIAGNOSIS Diagnosis/Symptoms: False Labor Diagnoses/Symptoms Other: IUP at 34.4, no vaginal bleeding upon exam Gestation: 38.6 Number of Babies in Womb: 1 Parity: 0 DIET/ACTIVITY/RESTRICTIONS Diet: Regular Activity: Normal Activity TEACHING/INSTRUCTIONS/REFERRALS Instructions Given To: Patient, patient's spouse, patient's mother Instructions Understood: Patient Verbalized Understanding; Support Person Verbalized Understanding Referrals: None Educational Materials- Other: - [employer] - The Labor Process DISCHARGE INFORMATION Discharged AMA: No Discharge Date/Time: 05/27/2016 02:23 Discharged To: Home Discharge Provider Name: Dr. Gray Accompanied By: Spouse, mom Discharge Method: Ambulatory Condition: Stable FOLLOW UP INFORMATION Follow Up With: [facility] Follow Up On: As Scheduled Follow Up Phone Number: [facility] - Comments: Signs and symptoms to report to provider to include vaginal bleeding, suspected SROM, decreased movment, contractions that increase in frequency/duration/intensity. Follow up in the office as scheduled. GENERAL INSTR-CALL PROVIDER IF: Contractions: Contractions or cramps become more frequent than 8 in one hour or 4 in 20 minutes; Regular painful contractions every 5 minutes or less for one hour. Time your contractions from the beginning of one to the beginning of the next Pressure: Pressure in your vagina or lower abdomen that may feel like the baby is pushing down Period Like Cramps: Period-like cramps or low dull backache that may come and go Cramps/Diarrhea: Abdominal cramps that may be accompanied by diarrhea Gush of Fluid/Blood: Gush of fluid or blood from your vagina (it is normal to have spotting after vaginal exam or intercourse) Vaginal Discharge: Change in the type or amount of vaginal discharge Decreased Movement: Your baby is not moving as much as usual- 4 movements in 1 hour after drinking and resting on side Temperature: Temperature greater than 100.0(F) orally
== END 2016-05-27 02:23 | disposition home or self-care (01) ==
LOC: LC 00:18
PROVIDERS: ATTEND Obstetrics & Gynecology
PROC: 4A1HXCZ Monitoring of Products of Conception, Cardiac Rate, External Approach (ICD-10-PCS; principal; 2016-05-27)
DX: O47.1 False labor at or after 37 completed weeks of gestation (principal); Z3A.38 38 weeks gestation of pregnancy
CPT/HCPCS: 80307; 81005